=== PATIENT | male | born 1985 | race Caucasian/White ===

== ENCOUNTER 2020-03-14 10:34 | Outpatient (CLI) | payer OTHER, SELFPAY ==
--- NOTE | ~2020-03-14 | US_ITS ---
US soft tissue groin RT 03/14/2020 11:14 Indication: Right inguinal pain. Evaluate for hernia. Procedure: High-resolution ultrasound of the right inguinal location Comparison: No prior studies for comparison. Findings: Normal heterogeneous soft tissues. No evidence for hernia or lymphadenopathy. No discrete m ass. Impression: 1: Normal right inguinal soft tissue ultrasound. Reviewed, dictated and finalized at location A. Impression: 1: Normal right inguinal soft tissue ultrasound.
== END 2020-03-14 10:35 | disposition home or self-care (01) ==
PROVIDERS: PCP Nurse Practitioner Adult Health; Visit Provider Nurse Practitioner Adult Health
DX: R10.2 Pelvic and perineal pain (principal)
CPT/HCPCS: 76882

== ENCOUNTER 2020-04-19 20:27 | Observation (INO) | payer OTHER, SELFPAY ==
--- NOTE | ~2020-04-19 | CT_ITS ---
EXAMINATION: CT abdomen pelvis w con EXAM DATE: 04/19/2020 21:19 INDICATION: Mid abdominal pain. TECHNIQUE: Spiral CT of the abdomen and pelvis was performed following intravenous injection of 100 m L Omnipaque 350. Axial, coronal and sagittal images were reviewed. The dose-length product (DLP) fo r this examination was 323.81 mGy-cm. The exposure was tailored according to patient size (auto mA e xposure control), and iterative reconstruction (ASIR) was used as additional dose reduction technique . There is no prior study for comparison. FINDINGS: There is a hypodensity in the liver measuring 1.1 cm cm consistent with a cyst. The spleen , pancreas, and adrenal glands are unremarkable. Gallbladder is unremarkable. No biliary obstructio n. Portal and splenic veins are patent. Kidneys enhance symmetrically. There is no hydronephrosis. The prostate is unremarkable. The bladder is unremarkable. There is no retroperitoneal or pelvic lymphadenopathy. The appendix measures 8 mm in diameter which is considered mildly enlarged, but this could be a lukasz l congenital appearance for this patient. Proximal portion of the appendix has fluid. There is no obs tructing appendicolith or associated inflammation. Appendix is retrocecal in location deep in the pel vis. Cannot totally exclude early acute appendicitis. The appendix has been indicated on axial image 140 for your review. The stomach and small bowel are unremarkable. There is expected amount of colonic stool. No free i ntraperitoneal gas. The heart is normal in size. There are no pericardial or pleural effusions. T he lung bases are unremarkable. The bones are unremarkable. IMPRESSION: Appendix which is mildly large in caliber but without obstructing appendicolith or adjace nt inflammation. Could be congenital appearance but cannot exclude early acute appendicitis. Please n ote appendix is retrocecal and located deep in the pelvis. Otherwise unremarkable CT scan. Reviewed, dictated and finalized at location G. IMPRESSION: Appendix which is mildly large in caliber but without obstructing a ppendicolith or adjacent inflammation. Could be congenital appearance but canno t exclude early acute appendicitis. Please note appendix is retrocecal and loca triston deep in the pelvis. Otherwise unremarkable CT scan.
[2020-04-19 20:28] VITALS: BP 129/83; PULSE 72; RESP 18; TEMP 36.8; O2SAT 100
[2020-04-19 20:52] LABS: Basophils Absolute Auto 0.1 K/mm3 (0.0-0.1); Basophils Percent Auto 0.4 % (0.2-1.2); Eosinophils Absolute Auto 0.2 K/mm3 (0-0.3); Eosinophils Percent Auto 1.4 % (0-4.4); Hematocrit 46.3 % (42.0-52.0); Hemoglobin 15.9 g/dL (14.0-18.0); Immature Granulocyte Absolute 0.04 K/mm3 (0.00-0.031); Immature Granulocyte Percent A 0.4 % (0-0.5); Lymphocytes Percent Auto 29.1 % (18.3-44.2); Mean Corpuscular HGB Conc 34.3 g/dl (32-36); Mean Corpuscular Hemoglobin 30.3 pg (26-34); Mean Corpuscular Volume 88.4 fl (80-100); Mean Platelet Volume 9.5 fl (7.4-10.4); Monocytes Absolute Auto 0.9 K/mm3 (0.1-0.6); Monocytes Percent Auto 7.9 % (2.6-8.5); Neutrophils Absolute Auto 6.9 K/mm3 (1.3-6.7); Neutrophils Percent Auto 60.8 % (45.5-73.1); Platelet Count Result 246 k/mm3 (150-375); Red Blood Count 5.24 M/mm3 (4.6-6.20); White Blood Count 11.3 K/mm3 (4.5-10.0)
[2020-04-19 20:53] LABS: Add Urine Microscopic? NO; Appearance Urine Clear (Clear); Bilirubin Urine Negative (Negative); Blood Urine Negative (Negative); Color Urine Straw (Yellow); Glucose Urine UA Negative (Negative); Ketones Urine Negative (Negative); Leukocyte Esterase Ur Negative LEU/UL (Negative); Nitrate Urine Negative (Negative); Protein Urine Negative (Negative); Specific Grav Ur 1.009 (1.001-1.035); Urobilinogen Urine Negative mg/dL (<2.0)
[2020-04-19] MEDS: KETOROLAC 30 MG/ML VIAL (*BKC) IV PUSH (20:56)
[2020-04-19 21:03] LABS: Alanine Aminotransferase 28 U/L (4-50); Albumin Level 4.6 g/dL (3.5-5.1); Alkaline Phosphatase 105 U/L (38-126); Aspartate Amino Transferase 29 U/L (17-59); Bilirubin,Total 0.2 mg/dL (0.2-1.3); Blood Urea Nitrogen 12 mg/dL (9-20); Calcium 9.1 mg/dL (8.4-10.2); Carbon Dioxide 32 mmol/L (22-30); Chloride 98 mmol/L (98-107); Estimated CRCL calculation 88 ml/min; Estimated Glomerular Filt Rate > 60; Glucose 90 mg/dL (75-110); Lipase 138 U/L (23-300); Potassium 4.1 mmol/L (3.4-5.0); Sodium 136 mmol/L (137-145)
--- NOTE | 2020-04-19 21:05 | ED.GENADULT ---
HPI - General Adult General Chief complaint: Abdominal Pain Stated complaint: abd pain Time Seen by Provider: 04/19/20 20:41 History of Present Illness HPI narrative: Patient is a 34 y/o male complaining of generalized abdominal pain starting 2-3 hours ago. He states that the pain is sharp with no radiation. He rates his pain as 4/10. He took some antacid which did not help. He denies any fever, nausea, vomiting or diarrhea. Related Data Home Medications Medication Instructions Recorded Confirmed citalopram mg 04/19/20 04/19/20 dextroamphetamine-amphetamine PO 04/19/20 [Adderall XR] Allergies Allergy/AdvReac Type Severity Reaction Status Date / Time erythromycin base Allergy Gastrointestinal Verified 04/19/20 20:39 Upset Review of Systems Constitutional: Constitutional: Denies chills, Denies fever(s), Denies headache(s) and Denies weakness Eyes: Eyes: Denies blurry vision ENT: Denies headache(s) and Denies neck pain Cardiovascular: Cardiovascular: Denies chest pain and Denies dyspnea Respiratory: Respiratory: Denies cough and Denies dyspnea Gastrointestinal: Gastrointestinal: Reports abdominal pain, Denies diarrhea, Denies nausea and Denies vomiting Genitourinary: Genitourinary: Denies hematuria and Denies dysuria Musculoskeletal: Musculoskeletal: Denies back pain and Denies neck pain Neurologic: Denies headache(s) and Denies weakness [facility] Family History Family History Other Malignant neoplasm of prostate Social History Social History Second hand tobacco smoke exposure: Yes Alcohol intake: current Exam Const: General: no acute distress and well developed Orientation/consciousness: oriented to person, oriented to place, oriented to time and patient oriented x3 HENMT: Head: normocephalic Ears: external ears normal General nose exam: Normal external nose present Eyes: General: appearance normal, both eyes and all related structures Conjunctivae: conjunctivae normal Neck: Neck: normal visual inspection and full ROM Chest: Chest palpation & inspection: normal inspection of the chest and no tenderness Resp: Effort & Inspection: normal respiratory effort Auscultation: clear to auscultation bilaterally Cardio: Rate: regular rate Rhythm: regular rhythm GI: GI Palp: No abdominal tenderness and Yes Soft to palpation Skin: General skin exam: normal color and turgor normal Neuro: General: oriented to person, oriented to place, oriented to time and patient oriented x3 Cognition (Neuro): normal cognition Extrem: General: normal to inspection, full ROM and no pedal edema Psych: Appearance: grossly normal Mental Status: mental status grossly normal Affect: normal affect Course Consultations Consultation #1: Discussed with Dr. Bran, who agrees to admit for observation. He also recommends starting on Zosyn. Date: 04/19/20 Time: 22:40 Vital Signs Vital signs: Vital Signs Temperature 36.8 C 04/19/20 20:28 Pulse Rate 72 04/19/20 20:28 Respiratory Rate 18 04/19/20 20:28 Blood Pressure 129/83 04/19/20 20:28 Pulse Oximetry 100 04/19/20 20:28 Temperature 36.8 C 04/19/20 20:28 Pulse Rate 72 04/19/20 20:28 Respiratory Rate 18 04/19/20 20:28 Blood Pressure 129/83 04/19/20 20:28 Pulse Oximetry 100 04/19/20 20:28 Medical Decision Making MDM Narrative Medical decision making narrative: CT is suggesting possible early appy. Will call surgery for consult. Vital Signs Vital Signs: Vital Signs Temperature 36.8 C 04/19/20 20:28 Pulse Rate 72 04/19/20 20:28 Respiratory Rate 18 04/19/20 20:28 Blood Pressure 129/83 04/19/20 20:28 Pulse Oximetry 100 04/19/20 20:28 Temperature 36.8 C 04/19/20 20:28 Pulse Rate 72 04/19/20 20:28 Respiratory Rate 18 04/19/20 20:28 Blood Pressure 129/83 04/19/20 20:28 Pulse Oxime
[2020-04-19 23:06] VITALS: BP 118/64; PULSE 84; RESP 18; O2SAT 98
[2020-04-19] MEDS: SODIUM CHLORIDE 0.9% IV 1,000 ML 125 ML IV CONT (23:29)
[2020-04-20] VITALS (16 sets, daily range): BP systolic 99–126; BP diastolic 53–70; PULSE 78–109; RESP 12–22; TEMP 36.4–37.3; O2SAT 95–100; BMI 24.3
--- NOTE | 2020-04-20 00:05 | ADMGEN ---
This patient, Martínez Weiss, was admitted to [facility] Surg Room 312-01. Patient/family oriented to hospital policies and general routines including ID bracelet, bed and alarms, visiting hours, pain management, procedures, bathroom and other care routines, personal items, smoking policy, room service/diet, and visiting hours. Valuables list has been completed. Information on how to activate the Rapid Response Team has been discussed. Patient/Family are encouraged to report perceived risks to care and to ask questions if they do not understand what they are told or what they should do.
[2020-04-20] MEDS: MORPHINE SULFATE 2 MG/ML INJ IV PUSH ×2 (00:13→06:23)
[2020-04-20] MEDS: MORPHINE SULFATE 4 MG/ML INJ IV PUSH ×2 (01:30→05:04)
[2020-04-20] MEDS: IBUPROFEN IV 800 MG/200 ML 800 MG/200 ML BAG 400 MG IVPB ×2 (02:03→08:24)
[2020-04-20] MEDS: ONDANSETRON INJ 4 MG/2 ML VIAL IV PUSH ×2 (02:03→05:04)
[2020-04-20 05:20] LABS: Basophils Absolute Auto 0.1 K/mm3 (0.0-0.1); Basophils Percent Auto 0.2 % (0.2-1.2); Hematocrit 43.8 % (42.0-52.0); Immature Granulocyte Absolute 0.09 K/mm3 (0.00-0.031); Immature Granulocyte Percent A 0.4 % (0-0.5); Lymphocytes Absolute Auto 0.74 K/mm3 (0.9-3.2); Lymphocytes Percent Auto 3.4 % (18.3-44.2); Mean Corpuscular HGB Conc 34.2 g/dl (32-36); Mean Corpuscular Hemoglobin 30.2 pg (26-34); Mean Corpuscular Volume 88.3 fl (80-100); Mean Platelet Volume 10.2 fl (7.4-10.4); Monocytes Absolute Auto 1.9 K/mm3 (0.1-0.6); Monocytes Percent Auto 8.9 % (2.6-8.5); Neutrophils Absolute Auto 18.7 K/mm3 (1.3-6.7); Neutrophils Percent Auto 87.1 % (45.5-73.1); Platelet Count Result 199 k/mm3 (150-375); Red Blood Count 4.96 M/mm3 (4.6-6.20); Red Cell Distribution Width 12.1 % (11.5-14.5); White Blood Count 21.5 K/mm3 (4.5-10.0)
--- NOTE | 2020-04-20 07:21 | PC.NURSE ---
Patient c/o persistent pain - no relief with medications. Dr Bran here to examine patient - advised of meds given at 0500 and 0623.
[2020-04-20] MEDS: SODIUM CHLORIDE 0.9% IV 1,000 ML 125 ML IV CONT (08:23)
--- NOTE | 2020-04-20 08:40 | PC.NURSE ---
Patient to OR.
[2020-04-20] MEDS: LACTATED RINGERS 1,000 ML 30 ML IV CONT (08:55)
--- NOTE | 2020-04-20 08:58 | WPDANESEPPF ---
Anes - Initial Pre Proc Eval Procedure: Operation Date: 04/20/20 15:00 Proposed Procedures p Laparoscopic Appendectomy, possible open - Andrew Bran DO Date/Time: 04/20/20 08:58 Surgeon: Andrew Bran DO Pre Op Diagnosis: abdominal pain, abnormal CT Patient Data Age: 34 Gender: M Height: 5 ft 7 in Weight: 70.6 kg Last Vital Signs Temp 36.4 C L 04/20/20 05:58 Pulse 83 04/20/20 05:58 Resp 18 04/20/20 05:58 BP 110/54 L 04/20/20 05:58 Pulse Ox 98 04/20/20 05:58 Allergies Allergy/AdvReac Type Severity Reaction Status Date / Time erythromycin base Allergy Gastrointestinal Verified 04/19/20 20:39 Upset Home Medications Medication Instructions Recorded Confirmed Type citalopram 40 mg PO DAILY 04/19/20 04/20/20 History dextroamphetamine-amphetamine 20 mg PO DAILY 04/19/20 04/20/20 History [Adderall XR] ascorbic acid-vitamin E-biotin 1 tablet PO DAILY 04/20/20 04/20/20 History [Hair, Skin, Nails with Biotin] finasteride 1 mg PO DAILY 04/20/20 04/20/20 History multivit with min-folic acid 0.4 mg PO DAILY 04/20/20 04/20/20 History [Adult One Daily Multivitamin] Laboratory Tests 04/19/20 04/19/20 04/19/20 20:46 20:46 20:46 WBC 11.3 K/mm3 H K/mm3 (4.5-10.0) RBC 5.24 M/mm3 M/mm3 (4.6-6.20) Hgb 15.9 g/dL g/dL (14.0-18.0) Hct 46.3 % % (42.0-52.0) MCV 88.4 fl fl (80-100) MCH 30.3 pg pg (26-34) MCHC 34.3 g/dl g/dl (32-36) RDW 12.0 % % (11.5-14.5) Plt Count 246 k/mm3 k/mm3 (150-375) MPV 9.5 fl fl (7.4-10.4) Immature Gran % (Auto) 0.4 % % (0-0.5) Neut % (Auto) 60.8 % % (45.5-73.1) Lymph % (Auto) 29.1 % % (18.3-44.2) [place] % (Auto) 7.9 % % (2.6-8.5) Eos % (Auto) 1.4 % % (0-4.4) Baso % (Auto) 0.4 % % (0.2-1.2) Lymph # (Auto) 3.30 K/mm3 H K/mm3 (0.9-3.2) [place] # (Auto) 0.9 K/mm3 H K/mm3 (0.1-0.6) Eos # (Auto) 0.2 K/mm3 K/mm3 (0-0.3) Baso # (Auto) 0.1 K/mm3 K/mm3 (0.0-0.1) Abs Immat Gran (auto) 0.04 K/mm3 H K/mm3 (0.00-0.031) Absolute Neuts (auto) 6.9 K/mm3 H K/mm3 (1.3-6.7) Absolute Nucleated RBC 0.0 K/mm3 K/mm3 (0.0-0.012) Nucleated RBC % 0.0 % % (0.0-0.2) Sodium 136 mmol/L L mmol/L (137-145) Potassium 4.1 mmol/L mmol/L (3.4-5.0) Chloride 98 mmol/L mmol/L (98-107) Carbon Dioxide 32 mmol/L H mmol/L (22-30) BUN 12 mg/dL mg/dL (9-20) Creatinine 1.00 mg/dL mg/dL (0.7-1.3) Estim Creat Clear Calc 88 ml/min ml/min Estimated GFR > 60 (59 - ) Glucose 90 mg/dL mg/dL (75-110) Calcium 9.1 mg/dL mg/dL (8.4-10.2) Total Bilirubin 0.2 mg/dL mg/dL (0.2-1.3) AST 29 U/L U/L (17-59) ALT 28 U/L U/L (4-50) Alkaline Phosphatase 105 U/L U/L (38-126) Total Protein 8.0 g/dL g/dL (6.3-8.2) Albumin 4.6 g/dL g/dL (3.5-5.1) Lipase 138 U/L U/L (23-300) Urine Color Straw (Yellow) Urine Appearance Clear (Clear) Urine pH 7.0 (5.0-9.0) Ur Specific [place] 1.009 (1.001-1.035) Urine Protein Negative mg/dL mg/dL (Negative) Urine Glucose (UA) Negative mg/dL mg/dL (Negative) Urine Ketones Negative mg/dL mg/dL (Negative) Ur Blood (Man) Negative (Negative) Urine Nitrate Negative (Negative) Urine Bilirubin Negative (Negative) Urine Urobilinogen Negative mg/dL mg/dL (<2.0) Leukocyte Esterase Rfl Negative HILLARY/UL HILLARY/UL (Negative) 04/20/20 04:51 WBC 21.5 K/mm3 H K/mm3 (4.5-10.0) RBC 4.96 M/mm3 M/mm3 (4.6-6.20) Hgb 15.0 g/dL g/dL (14.0-18.0) Hct 43.8 % % (42.0-5
--- NOTE | 2020-04-20 09:25 | PM.IMHP ---
H&P: HPI History of Present Illness Chief complaint: Abdominal pain Narrative: Martínez Weiss is a 34 year old male who presented to the ED last night with epigastric abdominal pain. While in the ED, the pain began migrating to the lower abdomen. His pain started yesterday evening. He has had nausea and vomiting. Denies fevers or chills. Denies change in bowel habits. He has never had symptoms like this before. CT in the ED showed 8mm appendix without surrounding inflammation, equivocal for appendicitis. Since being admitted, his pain has escalated. IV pain meds are only partially helping. His pain is more localized to the RLQ now. Review of Systems Review of Systems: All systems reviewed & are unremarkable except as noted in HPI and below Constitutional: Constitutional: Denies fever(s) Eyes: Eyes: Denies change in vision ENT: Denies hearing loss, Denies neck pain and Denies sore throat Cardiovascular: Cardiovascular: Denies chest pain and Denies dyspnea Respiratory: Respiratory: Denies cough, Denies dyspnea and Denies wheezing Gastrointestinal: Gastrointestinal: Reports as per HPI Genitourinary: Genitourinary: Denies hematuria and Denies dysuria Musculoskeletal: Musculoskeletal: Denies arthralgias, Denies joint swelling and Denies neck pain Allergic/Immunologic: Allergic/Immunologic: Denies wheezing PMFSH Past Medical History Medical History Hyperlipidemia GRAHAM on CPAP Smoker Family History Family History Father No problems noted. Mother No problems noted. Other Malignant neoplasm of prostate Social History Social History Smoking status: Current every day smoker Tobacco type: e-cigarettes/vaping Second hand tobacco smoke exposure: Yes Alcohol intake: never Substance use: never Gender identity (if verbalized by the patient): Male Spiritual care concerns: No Meds Home Medications and Allergies Home Medications Medication Instructions Recorded Confirmed Type citalopram 40 mg PO DAILY 04/19/20 04/20/20 History dextroamphetamine-amphetamine 20 mg PO DAILY 04/19/20 04/20/20 History [Adderall XR] ascorbic acid-vitamin E-biotin 1 tablet PO DAILY 04/20/20 04/20/20 History [Hair, Skin, Nails with Biotin] finasteride 1 mg PO DAILY 04/20/20 04/20/20 History multivit with min-folic acid 0.4 mg PO DAILY 04/20/20 04/20/20 History [Adult One Daily Multivitamin] Allergies Allergy/AdvReac Type Severity Reaction Status Date / Time erythromycin base Allergy Gastrointestinal Verified 04/19/20 20:39 Upset Vital Signs Vital Signs - 24 hr 04/19/20 20:28 04/19/20 23:06 04/20/20 00:07 Temperature 36.8 C 36.9 C Pulse Rate 72 84 80 Respiratory Rate 18 18 18 Blood Pressure 129/83 118/64 126/66 Pulse Oximetry 100 98 97 04/20/20 00:42 04/20/20 02:00 04/20/20 05:58 Temperature 36.9 C 36.4 C L Pulse Rate 96 100 83 Respiratory Rate 16 22 H 18 Blood Pressure 99/54 L 110/54 L Pulse Oximetry 95 98 98 04/20/20 09:05 Temperature 37.3 C Pulse Rate 88 Respiratory Rate Blood Pressure 109/55 L Pulse Oximetry 98 Exam Const: General: alert; No acute distress Orientation/consciousness: patient oriented x3 Limitations: no limitations HENMT: Head: normocephalic and atraumatic Ears: hearing grossly normal bilaterally General nose exam: Normal external nose present and Normal nares present Mouth: Yes Normal oral and palatal mucosa present and Yes moist mucous membranes Eyes: General: appearance normal, both eyes and all related structures Conjunctivae: conjunctivae normal Sclera: sclerae normal Pupils: Equal, round and reactive pupils present EOM: EOMs intact bilaterally Neck: Neck: normal visual inspection, full ROM, no lymphadenopathy, supple and no JVD Lymphatic: no lymphadenopathy noted Chest: Chest palpation & inspection: n
--- NOTE | 2020-04-20 09:33 | SUR.PREOP ---
0910- called and updated pt , all question answered. zosyn 3.375 given to or, due at 11:20.
[2020-04-20] MEDS: BUPIVACAINE/EPINEPHRINE 0.5% 30 ML VIAL INFILTRATE (09:59)
--- NOTE | 2020-04-20 10:16 | PM.PROC ---
Procedure Note - Detailed Date of procedure: 04/20/20 Pre-op diagnosis: Acute appendicitis Post-op diagnosis: same (Acute appendicitis w/ generalized peritonitis, without perforation or abscess) Procedure performed: Laparoscopic Appendectomy Description of procedure: Procedure as well as risks, benefits, and alternatives were explained to the patient. The patient agreed to proceed. Written consent was obtained and placed in chart prior to procedure. The patient was brought back to surgical suite. [] was placed supine on operating table. Time-out was done to confirm the patient and procedure. The patient was then intubated by the Anesthesia Department. [] abdomen was prepped and draped in sterile fashion using chlorhexidine prep. A 12 mm incision was made at the inferior portion of the umbilicus. Blunt dissection was carried out down to the linea alba. The linea alba was then incised using a 15 blade scalpel. Then bluntly entered into the peritoneal cavity. A 12 mm trocar was then inserted, and carbon dioxide insufflation was used to create a pneumoperitoneum. The camera was inserted and the abdomen was inspected. No immediate abnormalities were identified. The patient was then placed in slight Trendelenburg position and rotated to the left. A 5 mm incision was made in the suprapubic region in midline and a 5 mm trocar was inserted under direct visualization. A 5 mm incision was made in the left lower quadrant and a 5 mm trocar was inserted under direct visualization. The right lower quadrant was carefully inspected. The cecum was identified and then this was traced back to the appendix. The appendix was identified and grasped at the mesoappendix and lifted anteriorly. Careful blunt dissection was carried out at the base of the appendix through the mesoappendix using a [place] grasper. An Endo-JENNIFER 45 mm blue load stapler was then advanced across the base of the appendix and clamped and fired. A white reload was then clamped across the mesoappendix and fired. This freed up our appendix completely. It was then placed in an EndoCatch bag and removed through the left lower quadrant port. The staple lines were then inspected. Hemostasis appeared adequate and the staple lines appeared secure. The area was then irrigated with sterile saline. The pelvis was then carefully inspected and irrigated with sterile saline as well and the remainder of the abdomen was carefully inspected. The patient was then flattened out in bed. One final inspection was made around the abdominal cavity and no other abnormalities were seen. The ports were then removed under direct visualization. The camera was removed and the pneumoperitoneum was released. The fascia of the umbilical incision was reapproximated using an 0 Vicryl [id number] suture. 0.5% bupivacaine with epinephrine was infiltrated locally around each of the incisions. The skin of the incisions was then approximated using 4-0 Monocryl subcuticular suture and Exofin glue was applied on top. The patient was then awakened from anesthesia, extubated, and transferred to Recovery. Anesthesia: GETA and local (0.5% bupivicaine with epi) Surgeon: Andrew Bran DO Estimated blood loss (mL): 5 Pathology: yes (Appendix) Complications: No immediate complications Condition: stable Disposition: floor Findings: This is a 34-year-old man who presented to the emergency department last night with abdominal pain that started several hours earlier. He had a slightly elevated white blood count and CT showed evidence of an 8 mm appendix without surrounding inflammation. Findings were equivocal for appendicitis, but overnight his pain migrated to the lower abdomen and he was continuing to have persistent pain with nausea and vomiting. Discussions were made with the patient about treatment options, and decision was made to proceed with laparoscopic appendectomy, possible open. Laparoscopic appendectomy was performed.
--- NOTE | 2020-04-20 10:35 | PM.DS ---
DS: Admitting Diagnosis Admitting Diagnosis Admitting Diagnosis: Acute appendicitis with generalized peritonitis, without abscess DS: Discharge Diagnosis Discharge Diagnosis (1) Acute appendicitis with generalized peritonitis: Qualifiers: Appendicitis abscess presence: without abscess Appendicitis gangrene presence: without gangrene Appendicitis perforation presence: unspecified whether perforation present Qualified Code(s): K35.20 - Acute appendicitis with generalized peritonitis, without abscess Code(s): K35.20 - Acute appendicitis with generalized peritonitis, without abscess Status: Acute DS: Summary Hospital Course Reason for hospitalization: Acute appendicitis Hospital Course: This is a 34-year-old man who presented to the emergency department 04/19/2020 with abdominal pain that started several hours prior. Pain was worsening and eventually localizing to the lower abdomen. CT in the emergency department showed an 8 mm appendix without surrounding inflammatory changes. He had a slightly elevated white blood count and symptoms were consistent with early acute appendicitis. He was started on Zosyn IV and was admitted to the hospital for further workup and treatment. On 04/20/2020 his pain was more localized to the right lower quadrant with a positive Rovsing sign. His white blood count also increased to 21,000. I recommended urgent laparoscopic appendectomy, possible open. Surgery was completed on 04/20 and he was then returned to the surgical floor postoperatively. His diet and activity were advanced as tolerated. He was discharged home on 04/20 once his pain was controlled, vitals were stable, he was tolerating a regular diet, and he was ambulating in the halls. Status at Discharge Functional status at discharge: independent ambulation Overall status at discharge: patient is progressing back to baseline Time Spent with Patient Time attestation: Total time spent providing and/or coordinating discharge services: Time spent: Less than 30 minutes Exam Const: General: no acute distress GI: GI Palp: Yes Soft to palpation and No Guarding due to palpation present (GI) Psych: Mental Status: mental status grossly normal DS: Data Data Completed and Pending Pending studies at discharge: Pending at discharge 04/20/20 09:58 Surgical [PTH] Routine Labs on day of discharge: Labs from last 24 hours 04/20/20 04/19/20 04/19/20 04:51 20:46 20:46 WBC 21.5 H RBC 4.96 Hgb 15.0 Hct 43.8 MCV 88.3 MCH 30.2 MCHC 34.2 RDW 12.1 Plt Count 199 MPV 10.2 Immature Gran % (Auto) 0.4 Neut % (Auto) 87.1 H Lymph % (Auto) 3.4 L [place] % (Auto) 8.9 H Eos % (Auto) 0.0 Baso % (Auto) 0.2 Lymph # (Auto) 0.74 L [place] # (Auto) 1.9 H Eos # (Auto) 0.0 Baso # (Auto) 0.1 Abs Immat Gran (auto) 0.09 H Absolute Neuts (auto) 18.7 H Absolute Nucleated RBC 0.0 Nucleated RBC % 0.0 Sodium 136 L Potassium 4.1 Chloride 98 Carbon Dioxide 32 H BUN 12 Creatinine 1.00 Estim Creat Clear Calc 88 Estimated GFR > 60 Glucose 90 Calcium 9.1 Total Bilirubin 0.2 AST 29 ALT 28 Alkaline Phosphatase 105 Total Protein 8.0 Albumin 4.6 Lipase 138 Urine Color Straw Urine Appearance Clear Urine pH 7.0 Ur Specific [place] 1.009 Urine Protein Negative Urine Glucose (UA) Negative Urine Ketones Negative Ur Blood (Man) Negative Urine Nitrate Negative Urine Bilirubin Negative Urine Urobilinogen Negative Leukocyte Esterase Rfl Negative 04/19/20 20:46 WBC 11.3 H RBC 5.24 Hgb 15.9 Hct 46.3 MCV 88.4 MCH 30.3 MCHC 34.3 RDW 12.0 Plt Count 246 MPV 9.5 Immature Gran % (Auto) 0.4 Neut % (Auto) 60.8 Lymph % (Auto) 29.1 [place] % (Auto) 7.9 Eos % (Auto) 1.4 Baso % (Auto) 0.4 Lymph # (Auto) 3.30 H [place] # (Auto) 0.9 H Eos # (Auto) 0.2 Baso # (Auto) 0.1 Abs I
--- NOTE | 2020-04-20 11:38 | SUR.PHASEI ---
2718 SBAR FAXED FLOOR NOTIFIED
--- NOTE | 2020-04-20 11:42 | SUR.PHASEI ---
1142 SPOKE WITH AND UPDATED HER ON PT CONDITION
--- NOTE | 2020-04-20 12:06 | PC.NURSE ---
Patient returned from OR.
== END 2020-04-20 15:50 | disposition home or self-care (01) ==
LOC: ANHED 23:02 → ANH3MEDSUR 23:06
PROVIDERS: Emergency Medicine; Admitting Provider Surgery; Emergency Provider Emergency Medicine; PCP Nurse Practitioner Adult Health; Visit Provider Surgery
PROC: 0DTJ4ZZ Resection of Appendix, Percutaneous Endoscopic Approach (ICD-10-PCS; CPT 44970; principal; 2020-04-20 15:00)
DX: K35.20 Acute appendicitis with generalized peritonitis, without abscess (principal); F17.290 Nicotine dependence, other tobacco product, uncomplicated; E78.5 Hyperlipidemia, unspecified; G47.33 Obstructive sleep apnea (adult) (pediatric)
CPT/HCPCS: 44970; 36415; 74177; 80053; 81003; 83690; 85025; 88304; 96361; 96365; 96367; 96374; 96375; 96376; 99285; G0378; J0330; J1100; J1741; J1885; J2250; J2270; J2405; J2543; J2704; J7030; J7120; Q9967

== ENCOUNTER 2023-11-13 09:47 | Emergency (ER) | payer OTHER, SELFPAY ==
[2023-11-13 09:50] VITALS: BP 129/68; PULSE 74; RESP 16; TEMP 36.9; O2SAT 100
--- NOTE | 2023-11-13 10:32 | ED.ANXIETY ---
HPI - Anxiety General Chief Complaint: Anxiety Stated Complaint: panid attacks x 1 week Time Seen by Provider: 11/13/23 09:58 History of Present Illness HPI narrative: 37-year-old male presenting to the emergency department for evaluation of increased anxiety. Patient states he does take Prozac and his Prozac dose was increased from 40 mg to 60 mg on October 20. Patient reports on Robert he began having more frequent panic attacks. Patient denies suicidal or homicidal ideation. Patient denies any other medication changes. Patient states he does use recreational marijuana but this is not a change Related Data Home Medications Medication Instructions Recorded Confirmed citalopram 40 mg tablet 40 mg PO DAILY 04/19/20 05/01/20 dextroamphetamine-amphetamine ER 20 mg PO DAILY 04/19/20 05/01/20 20 mg 24hr capsule,extend release (Adderall XR) ascorbic acid 7.5 mg-vit E 7.5 1 tablet PO DAILY 04/20/20 05/01/20 unit-biotin 1,250 mcg chewable tablet (Hair,Skin,Nails with Biotin) finasteride 1 mg tablet 1 mg PO DAILY 04/20/20 05/01/20 multivitamin with minerals-folic 0.4 mg PO DAILY 04/20/20 05/01/20 acid 0.4 mg tablet (Adult One Daily Multivitamin) Allergies Allergy/AdvReac Type Severity Reaction Status Date / Time erythromycin base Allergy Gastrointestinal Verified 11/13/23 10:14 Upset Review of Systems Review of Systems: All systems reviewed & are unremarkable except as noted in HPI and below PMFSH Past Medical History Medical History Hyperlipidemia GRAHAM on CPAP Smoker Surgical History Surgical History History of laparoscopic appendectomy Family History Family History Father No problems noted. Mother No problems noted. Other Malignant neoplasm of prostate Social History Social History Smoking status: Current every day smoker Tobacco type: e-cigarettes/vaping Second hand tobacco smoke exposure: Yes Alcohol intake: never Substance use: never Substance use type: marijuana Gender identity (if verbalized by the patient): Male Spiritual care concerns: No Exam Narrative: APPEARANCE: Anxious. HEAD: normocephalic, atraumatic. EYES: PERRLA/EOMI, conjunctivae clear. NOSE: Normal no drainage NECK: Supple. No adenopathy, no masses. RESPIRATORY: Airway patent, respirations nonlabored. Clear to auscultation bilaterally, no rales, rhonchi, wheezing. CARDIOVASCULAR: Regular rate and rhythm without murmurs rubs or gallops. ABDOMINAL: Soft, nontender, nondistended, normal bowel sounds MUSCULOSKELETAL: Moves all extremities. Strength/ROM intact, No edema, No calf tenderness. NEURO: Alert. Cranial nerves II through XII intact. Grossly intact SKIN: Warm, dry. Normal Color PSYCHIATRIC: Anxious. Course Course Emergency Course: 37-year-old male present to the emergency department for evaluation of increased anxiety. Patient had recently increased his Prozac from 40 mg to 60 mg. Yesterday patient switch back to the 40 mg. Patient continues to deny any homicidal or suicidal ideation. Patient appears to be much more relaxed after the treatment with Ativan. Patient was encouraged to refrain from THC use and patient was in agreement. Patient was also in agreement to have close follow-up with primary care physician. All questions are answered were addressed and patient was well-appearing at time of discharge. Vital Signs Vital signs: Vital Signs Temperature 98.4 F 11/13/23 09:50 Pulse Rate 74 11/13/23 09:50 Respiratory Rate 16 11/13/23 09:50 Blood Pressure 129/68 11/13/23 09:50 Pulse Oximetry 100 11/13/23 09:50 Temperature 98.4 F 11/13/23 09:50 Pulse Rate 64 11/13/23 13:10 Respiratory Rate 16 11/13/23 13:10 Blood Pressure 117/69 11/13/23 13:10 Pulse O
[2023-11-13] MEDS: LORazepam INJ (*CRX) 2 MG/ML VIAL 1 MG IV PUSH (10:55)
[2023-11-13 11:08] LABS: Basophils Percent Auto 0.4 % (0.2-1.2); Eosinophils Absolute Auto 0.1 K/mm3 (0-0.3); Hematocrit 47.5 % (42.0-52.0); Hemoglobin 15.6 g/dL (14.0-18.0); Immature Granulocyte Absolute 0.03 K/mm3 (0.00-0.031); Immature Granulocyte Percent A 0.4 % (0-0.5); Lymphocytes Absolute Auto 1.83 K/mm3 (0.9-3.2); Mean Corpuscular HGB Conc 32.8 g/dl (32-36); Mean Corpuscular Hemoglobin 29.8 pg (26-34); Mean Corpuscular Volume 90.6 fl (80-100); Monocytes Absolute Auto 0.8 K/mm3 (0.1-0.6); Monocytes Percent Auto 11.2 % (2.6-8.5); Neutrophils Absolute Auto 4.3 K/mm3 (1.3-6.7); Platelet Count Result 219 k/mm3 (150-375); Red Blood Count 5.24 M/mm3 (4.6-6.20)
[2023-11-13 11:10] LABS: Add Urine Microscopic? NO; Appearance Urine Clear (Clear); Bilirubin Urine Negative (Negative); Blood Urine Negative (Negative); Color Urine Yellow (Yellow); Glucose Urine UA Negative (Negative); Ketones Urine Negative (Negative); Leukocyte Esterase Ur Negative LEU/UL (Negative); Nitrate Urine Negative (Negative); Protein Urine Negative (Negative); Specific Grav Ur 1.016 (1.001-1.035); pH Urine 7.5 (5.0-9.0)
[2023-11-13 11:17] VITALS: BP 111/73; PULSE 66; RESP 18; O2SAT 96
[2023-11-13 11:18] LABS: Alanine Aminotransferase 18 U/L (6-50); Albumin Level 4.6 g/dL (3.5-5.1); Alkaline Phosphatase 96 U/L (38-126); Anion Gap 7 mmol/L (8-16); Aspartate Amino Transferase 22 U/L (17-59); Bilirubin,Total 0.2 mg/dL (0.2-1.3); Blood Urea Nitrogen 11 mg/dL (9-20); Calcium 9.3 mg/dL (8.4-10.2); Carbon Dioxide 31 mmol/L (22-30); Chloride 102 mmol/L (98-107); Estimated CRCL calculation 119 ml/min; Estimated Glomerular Filt Rate > 60; Glucose 97 mg/dL (65-110); Potassium 3.8 mmol/L (3.4-5.0); Sodium 140 mmol/L (137-145)
[2023-11-13 11:25] LABS: Amphetamine Screen Urine Negative (Negative); Barbiturate Screen Urine Negative (Negative); Benzodiazepines Screen Urine Negative (Negative); Cannabinoid Screen Urine Positive (Negative); Cocaine Screen Urine Negative (Negative); Methadone Screen Urine Negative (Negative); Opiate Screen Urine Negative (Negative); Phencyclidine Screen Urine Negative (Negative)
[2023-11-13 12:00] LABS: Influenza A QL RT-PCR Negative (Negative); Influenza B QL RT-PCR Negative (Negative); RSV RNA, RT-PCR Negative (Negative); SARS-CoV-2 RNA PCR Negative (Negative)
[2023-11-13 13:10] VITALS: BP 117/69; PULSE 64; RESP 16; O2SAT 100
== END 2023-11-13 13:11 | disposition home or self-care (01) ==
PROVIDERS: Emergency Provider Emergency Medicine; PCP Internal Medicine
DX: E78.5 Hyperlipidemia, unspecified (principal); G47.33 Obstructive sleep apnea (adult) (pediatric); F17.290 Nicotine dependence, other tobacco product, uncomplicated; Z11.52 Encounter for screening for COVID-19
CPT/HCPCS: 36415; 80053; 80307; 81003; 85025; 87637; 96374; 99284; J2060